=== PATIENT | female | born 1980 | race Caucasian/White ===

== ENCOUNTER 2024-05-16 09:24 | Outpatient (CLI) | payer OTHER, SELFPAY ==
[2024-05-16 10:16] LABS: Free T4 Free Thyroxine 1.15 ng/dL (0.82-1.77); Thyroid Stimulating Hormone 0.06 uIU/mL (0.27-4.20)
[2024-05-17 09:05] LABS: T3 Total 120 ng/dL (76-181)
== END 2024-05-16 09:25 | disposition home or self-care (01) ==
PROVIDERS: PCP Family Medicine; Visit Provider Internal Medicine
DX: E07.9 Disorder of thyroid, unspecified (principal)
CPT/HCPCS: 36415; 84439; 84443; 84480

== ENCOUNTER → 2025-06-17 10:28 | Outpatient (BNVA) | payer OTHER, SELFPAY | PROVIDERS: PCP Family Medicine; Visit Provider Internal Medicine Endocrinology, Diabetes & Metabolism | DX: E05.90 Thyrotoxicosis, unspecified without thyrotoxic crisis or storm (principal) | CPT/HCPCS: 36415; 84436; 84480 ==